=== PATIENT | female | born 1960 | race Caucasian/White ===

== ENCOUNTER 2018-06-25 12:52 | Day surgery (SDC) | payer MEDICARE ==
[~2018-06-25] VITALS: Ht 165.1 cm; Wt 72.7 kg
--- NOTE | ~2018-06-25 | OP ---
PATIENT NAME: KALE WICK MEDICAL RECORD: [id number] :62 LOCATION:D.OPS ADMISSION DATE: SURGEON: GABY TEJADA MD DATE OF OPERATION: 06/25/2018 DATE OF SERVICE: 06/25/2018 PREOPERATIVE DIAGNOSES: Disc herniation and osteophyte formation at C5-C6. POSTOPERATIVE DIAGNOSES: Disc herniation and osteophyte formation at C6. SURGEON: Gaby Tejada MD. PROCEDURE: Anterior cervical discectomy and fusion at C5-C6 with removal of osteophytes and disc herniation. A PEEK interbody cage and Alisson bone allograft with ViaCell bone stem cells, separate anterior cervical plate and screws with Zavation, spine hardware. DESCRIPTION AND TECHNIQUE: After induction of general endotracheal anesthesia, the patient was positioned supine on the operating table. The neck was prepped and draped in usual sterile fashion. Fluoroscopic x-ray and freer localized the C5-C6 interspace. After infiltration of 1:100,000 epinephrine and 1% lidocaine, a transverse skin incision was carried out from the midline to the sternocleidomastoid muscle. The platysma was divided with Bovie cautery. Using blunt and sharp dissection with Metzenbaum scissors, I proceeded in the avascular plane medial to the carotid sheath. The C5-C6 interspace was identified with fluoroscopic x-ray and a spinal needle. The longus colli muscles were elevated from bodies of C5 and C6. Minto distracting pins were placed in the bodies of C5 and C6. Disc space was incised under distraction. Disc material was removed with the pituitary rongeurs and curettes. Under microscopic illumination, a Midas Kp drill was used to remove osteophytes posteriorly. The posterior longitudinal ligament was removed with Cloward rongeurs. Following this, the dura was decompressed well. A 7-mm PEEK interbody cage was placed in the disc space under distraction. Prior to this, it was filled with ViaCell bone stem cells. A separate anterior cervical plate and screws was used to span the C5-C6 interspace. Locking cams were tightened down over the screw heads. Meticulous hemostasis was maintained throughout the wound. The wound was irrigated with copious amounts of Ancef irrigant solution. The platysma and subdermal layer closed with interrupted 3-0 Vicryl suture. The skin was reapproximated with Steri-Strips and benzoin. A sterile dressing was applied to the wound. The patient was awakened in good condition and taken to recovery. All counts were reported as correct. Estimated blood loss was minimal. TRANSINT:[id number] Voice Confirmation ID: [id number] DOCUMENT ID: [id number] GABY TEJADA MD CC: [id number] DICTATION DATE: 07/19/18 1010 [facility] GEOLOGIST: 07/19/18 1045 [facility] 06/27/18 [place] [id number]
[2018-06-25 13:24] LABS: HEMATOCRIT 37.6 % (36.0-48.0); HEMOGLOBIN 13.1 g/dL (12-16); MCH 30.8 pg (26.0-34.0); MCHC 34.8 g/dL (31.0-37.0); MCV 88.5 fL (80.0-100.0); MEAN PLATELET VOLUME 9.6 fL (7.4-10.4); RBC 4.25 10x6/uL (4.00-5.40); RDW 12.8 % (11.5-14.5); WBC 6.5 10x3/uL (4.8-10.8)
[2018-06-25] MEDS ORDERED: ZITHROMAX250 MG (13:43)
[2018-06-25] MEDS ORDERED: LIPITOR10 MG PO (13:44)
[2018-06-25] MEDS ORDERED: EXFORGE 5-160 M1 TAB (13:44)
[2018-06-25] MEDS ORDERED: BUPROPION XL300 MG PO (13:44)
[2018-06-25 14:02] VITALS: BP 132/84; BMI 26.6
[2018-06-25 20:32] VITALS: BP 124/83; Ht 165.1 cm; Wt 72.7 kg
[2018-06-26] VITALS (14 sets, daily range): BP systolic 102–134; BP diastolic 64–80
[2018-06-27 04:00] VITALS: BP 112/63
[2018-06-27] MEDS ORDERED: HYDROCODONE-APA1 TAB PO (08:16)
[2018-06-27 08:47] VITALS: BP 120/70
== END 2018-06-27 11:36 | disposition home or self-care (01) ==
LOC: D.OPS 12:52 → D.MS 12:52 → D.OPS 15:15 → D.MS 20:19 → D.OPS 06-27 11:36
PROVIDERS: Anesthesiology
DX: M50.222 Other cervical disc displacement at C5-C6 level (principal); M25.78 Osteophyte, vertebrae; Z01.812 Encounter for preprocedural laboratory examination